=== PATIENT | male | born 1970 | race African-American/Black ===

== ENCOUNTER 2018-03-14 11:47 | Emergency (ER) | payer MEDICAID ==
[~2018-03-14] VITALS: Ht 167.6 cm; Wt 79.0 kg
[2018-03-14] MEDS ORDERED: LIDOCAINE HCL 1% 20ML VIAL (Pyxis) INJ INFIL ONE (14:30)
[2018-03-14] MEDS ORDERED: LIDOCAINE HCL/PF 1% 10 MG/ML 5ML VIAL IJ SCH (14:30)
[2018-03-14] MEDS ORDERED: BACITRACIN ZINC OINT UDPKT TOP ONE (14:45)
[2018-03-14] MEDS ORDERED: IBUPROFEN 600MG TABLET PO ONE (14:45)
[2018-03-14 15:00] VITALS: BP 121/88
== END 2018-03-14 15:30 | disposition home or self-care (01) ==
LOC: ER 11:47
DX: Z91.018 Allergy to other foods (principal); L02.811 Cutaneous abscess of head [any part, except face]
CPT/HCPCS: 10060; 99283; Z7610; J3490

== ENCOUNTER 2018-03-16 11:22 | Emergency (ER) | payer MEDICAID ==
[~2018-03-16] VITALS: Ht 167.6 cm; Wt 74.0 kg
[2018-03-16 12:05] VITALS: BP 130/84
== END 2018-03-16 12:33 | disposition home or self-care (01) ==
LOC: ER 11:22
DX: Z48.00 Encounter for change or removal of nonsurgical wound dressing (principal); R03.0 Elevated blood-pressure reading, without diagnosis of hypertension; Z72.0 Tobacco use
CPT/HCPCS: 99281

== ENCOUNTER 2023-05-11 02:24 | Emergency (ER) | payer MEDICAID ==
[~2023-05-11] VITALS: Ht 167.6 cm; Wt 70.0 kg
[2023-05-11 02:31] VITALS: BP 160/93; PULSE 111; RESP 16; TEMP 98.7; O2SAT 98
[2023-05-11] MEDS ORDERED: ACYC200C31 MT (02:54)
[2023-05-11] MEDS ORDERED: IBUP-2028 MT (02:54)
== END 2023-05-11 02:58 | disposition home or self-care (01) ==
LOC: ER 02:24
DX: B02.9 Zoster without complications (principal); Z91.018 Allergy to other foods
CPT/HCPCS: 99283